=== PATIENT | male | born 1980 | race Caucasian/White ===

== ENCOUNTER 2017-01-27 17:25 | Emergency (ER) | payer MEDICAID ==
[~2017-01-27] VITALS: Ht 177.8 cm; Wt 81.6 kg
[2017-01-27 17:36] VITALS: BP 146/97
--- NOTE | 2017-01-27 19:20 | NUR ---
PT BIB FAMILY C/O LEFT ANKLE PAIN 12/27; S/P TWISTED ANKLE STEPPING ON A WHOLE ON A GROUND; NO LOC/KO, CAP REFILL-IMM, WEAK R.O.M. S/P PAIN, PT DENIES N/V/D; SKIN IS INTACT, PINK/WARM/DRY; AAOX4, PERRL, WITH EVEN AND STEADY GAIT; LUNGS CLEAR BL, BREATHING UNLABORED; HR EVEN AND REGULAR, BL PERIPHERAL PULSES PRESENT; BS ACTIVE X4, NO TENDERNESS TO PALPATION. PT DENIES ANY FEVER, CP, SOB, OR COUGH AT THIS TIME; PT STATES 5/10 PAIN AT THIS TIME; VSS; PATIENT POSITIONED FOR COMFORT; HOB ELEVATED; BEDRAILS UP X2; BED DOWN.
[2017-01-27 19:52] VITALS: BP 125/85
--- NOTE | 2017-01-27 19:55 | NUR ---
Patient discharged with v/s stable. Written and verbal after care instructions given and explained. Patient alert, oriented and verbalized understanding of instructions. Ambulatory with to car. All questions addressed prior to discharge. ID band removed. Patient advised to follow up with PMD. Rx of MOTRIN 600MG QID/PRN, NORCO 5MG-325MG Q6HR/PRN given. Patient educated on indication of medication including possible reaction and side effects. Opportunity to ask questions provided and answered.
== END 2017-01-27 19:55 | disposition home or self-care (01) ==
LOC: MED 17:25
DX: S93.692A Other sprain of left foot, initial encounter (principal); X58.XXXA Exposure to other specified factors, initial encounter; Y93.89 Activity, other specified; Y92.098 Other place in other non-institutional residence as the place of occurrence of the external cause; Y99.8 Other external cause status
CPT/HCPCS: 73610; 73630; 99284